=== PATIENT | female | born 1955 | race African-American/Black ===

== ENCOUNTER 2020-12-23 02:14 | Inpatient (IN) ==
[2020-12-23] MEDS: NOREPINEPHRINE 4 MG in SODIUM CHLORIDE 0.9% 242 ML IV PRN ×2 (03:00→05:24)
[2020-12-23 03:05] LABS: Basophils # 0.1 10*3/uL (0.0-0.2); Basophils % 0.2 % (0.0-0.8); Eosinophils # 0.2 10*3/uL (0.0-0.87); Eosinophils % 0.7 % (0.00-10.9); Hematocrit 24.1 VOL% (35.7-47.0); Immature Granulocytes % 5.3 %; Immature Granulocytes Absolute 1.52 #; Lymphocytes # 1.4 10*3/uL (1.4-4.0); Lymphocytes % 4.8 % (21.3-54.2); Mean Corpuscular HGB Conc 33.2 GM/DL (32-36); Mean Corpuscular Volume 82.5 FL (87-102); Mean Platelet Volume 8.4 FL (9.6-12.0); Monocytes % 2.9 % (1.7-12.7); NRBC # 0.26 10*3/uL; Neutrophils % 86.1 % (38.7-73.9); Platelet Count 157 T/CUMM (130-400); Red Blood Count 2.92 MC/CUMM (3.8-5.5); White Blood Count 28.9 T/CUMM (4-12)
[2020-12-23 03:12] LABS: ABG Base Excess -9.2 MMOL/L (-2.5-2.5); ABG Oxygen Saturation 96.9 % (95-100); ABG PH 7.338 (7.35-7.45); ABG PO2 90.3 MM HG (80-95); ABG TCO2 14.5 MMOL/L (23-27); Allen Test Positive; Pt O2 Delivery Device Room Air
[2020-12-23 03:28] LABS: Alanine Aminotransferase 11 U/L (13-56); Albumin 1.3 G/DL (3.4-5.0); Alkaline Phosphatase 74 U/L (45-117); Anisocytosis 2+; Aspartate Amino Transferase 36 U/L (0-37); Band Neutrophils 7 % (0-10); Blood Urea Nitrogen 48 MG/DL (7-18); Burr Cells Few; Calcium 7.3 MG/DL (8.5-10.1); Carbon Dioxide 17 MMOL/L (21-32); Eosinophils 1 % (0-10); Estimated Glom Filtration Rate 25 ML/MIN; Glucose 131 MG/DL (74-106); Lymphocytes 5 % (20-55); Metamyelocytes 1 %; Nucleated Red Blood Cells 3 (0-5); Osmolality,Calculated 278.5 MOS/KG (273-304); Platelet Estimate Normal; Potassium 4.2 MMOL/L (3.5-5.1); Segmented Neutrophils 82 % (50-85); Sodium 132 MMOL/L (136-145); Total Cells Counted 100; Total Protein 3.5 G/DL (6.4-8.2)
[2020-12-23 03:29] LABS: Macrocytosis 1+; Target Cells Few
[2020-12-23] MEDS ORDERED: methylPREDNISolone SOD SUC 125 MG/2 ML VIAL IV STA (05:23)
[2020-12-23] MEDS ORDERED: ALBUTEROL 2.5 MG/3 ML NEB RESP TX PRN (05:23)
[2020-12-23] MEDS ORDERED: hydrALAZINE 20 MG/1 ML VIAL IV PRN (05:23)
[2020-12-23] MEDS ORDERED: diphenhydrAMINE CAP 25 MG CAPSULE PO PRN (05:23)
[2020-12-23] MEDS ORDERED: NICOTINE 21 MG/24 HR PATCH TRANSDERM PRN (05:23)
[2020-12-23] MEDS ORDERED: ALBUTEROL/IPRATROPIUM 3 ML NEB RESP TX PRN (05:23)
[2020-12-23] MEDS ORDERED: ACETAMINOPHEN 325 MG TABLET PO PRN (05:23)
[2020-12-23] MEDS ORDERED: ONDANSETRON 4 MG/2 ML VIAL IV PRN (05:23)
[2020-12-23] MEDS ORDERED: MORPHINE 2 MG/1 ML SYRINGE IV PRN (05:23)
[2020-12-23] MEDS ORDERED: MEROPENEM 500 MG VIAL ONE (05:41)
[2020-12-23] MEDS ORDERED: NOREPINEPHRINE 4 MG/4 ML VIAL IV ONE ×5 (05:42→21:48)
[2020-12-23] MEDS: SODIUM CHLORIDE 0.9% 1,000 ML IV SCH ×4 (05:55→22:26)
[2020-12-23] MEDS: MEROPENEM 500 MG in SODIUM CHLORIDE 0.9% 100 ML IV SCH ×3 (05:55→21:43)
[2020-12-23] MEDS ORDERED: VANCOMYCIN INJ 2,500 MG in SODIUM CHLORIDE 0.9% 500 ML IV PRN (05:58)
[2020-12-23 06:28] LABS: Bacteria,Urine Few /HPF (Few); Bilirubin,Urine Negative (Negative); Blood, Urine Moderate mg/dL (Negative); Glucose,Urine (UA) Negative (Negative); Ketones,Urine Negative (Negative); Mucus,Urine Occasional /LPF (Occasional); Nitrite,Urine Negative (Negative); Protein,Urine 30 MG/DL; RBC,Urine 214 /HPF (0-4); Squamous Epithelial Cell,Urine Occasional /HPF (0-10); Urine Appearance CLOUDY (Clear); Urine Specific Gravity 1.015 (1.001-1.035)
[2020-12-23 06:30] LABS: Urine Color Yellow (Yellow)
[2020-12-23] MEDS ORDERED: VANCOMYCIN INJ 2,500 MG in SODIUM CHLORIDE 0.9% 500 ML IV ONE (06:30)
[2020-12-23] MEDS: NOREPINEPHRINE 8 MG in SODIUM CHLORIDE 0.9% 242 ML IV PRN ×4 (08:28→22:25)
[2020-12-23] MEDS: PANTOPRAZOLE 40 MG VIAL IV SCH ×2 (09:59→21:43)
[2020-12-23] MEDS: ENOXAPARIN 30 MG/0.3 ML SYRINGE SUBCUT SCH (12:55)
[2020-12-23] MEDS ORDERED: GLUCAGON 1 MG VIAL IM PRN (14:46)
[2020-12-23] MEDS ORDERED: DEXTROSE 50% 25 GM/50 ML VIAL IV PRN (14:46)
[2020-12-23] MEDS: CHLORHEXIDINE 4% SOLN 118 ML BOTTLE TOP SCH (16:37)
[2020-12-23] MEDS: INSULIN LISPRO 100 UNIT/ML SUBCUT SCH (17:51)
[2020-12-24] MEDS ORDERED: MAGNESIUM SULF RIDER 4 GM/100 ML PREMIX IV PRN (01:03)
[2020-12-24] MEDS ORDERED: MAGNESIUM SULF RIDER 2 GM/50 ML PREMIX IV PRN (01:03)
[2020-12-24] MEDS ORDERED: ALBUMIN 25% 25 GM/100 ML VIAL IV ONE ×2 (01:04→07:00)
[2020-12-24 05:32] LABS: Basophils % 0.1 % (0.0-0.8); Eosinophils # 0.3 10*3/uL (0.0-0.87); Immature Granulocytes % 4.6 %; Immature Granulocytes Absolute 1.14 #; Lymphocytes # 1.1 10*3/uL (1.4-4.0); Lymphocytes % 4.4 % (21.3-54.2); Mean Corpuscular HGB Conc 32.1 GM/DL (32-36); Mean Corpuscular Volume 85.2 FL (87-102); NRBC # 0.22 10*3/uL; Neutrophils % 85.9 % (38.7-73.9); Platelet Count 146 T/CUMM (130-400); Red Blood Count 2.23 MC/CUMM (3.8-5.5); Red Cell Distribution Width 20.4 % (9.3-17.3)
[2020-12-24] MEDS: NOREPINEPHRINE 8 MG in SODIUM CHLORIDE 0.9% 242 ML IV PRN (05:44)
[2020-12-24] MEDS: SODIUM CHLORIDE 0.9% 1,000 ML IV SCH ×2 (05:44→12:50)
[2020-12-24 06:06] LABS: Alanine Aminotransferase < 6 U/L (13-56); Albumin 1.4 G/DL (3.4-5.0); Alkaline Phosphatase 72 U/L (45-117); Aspartate Amino Transferase 19 U/L (0-37); Blood Urea Nitrogen 46 MG/DL (7-18); Calcium 7.7 MG/DL (8.5-10.1); Carbon Dioxide 16 MMOL/L (21-32); Estimated Glom Filtration Rate 31 ML/MIN; Glucose 106 MG/DL (74-106); Osmolality,Calculated 273.7 MOS/KG (273-304); Potassium 3.9 MMOL/L (3.5-5.1); Sodium 131 MMOL/L (136-145); Total Protein 3.7 G/DL (6.4-8.2)
[2020-12-24 06:11] LABS: Hemoglobin 6.1 GM/DL (12.0-16.0)
[2020-12-24] MEDS ORDERED: SODIUM CHLORIDE 0.9% 1,000 ML IV PRN (06:11)
[2020-12-24] MEDS: MEROPENEM 500 MG in SODIUM CHLORIDE 0.9% 100 ML IV SCH ×3 (06:17→22:57)
[2020-12-24 06:19] LABS: Band Neutrophils 2 % (0-10); Hypochromasia 1+; Lymphocytes 8 % (20-55); Microcytosis 1+; Nucleated Red Blood Cells 1 (0-5); Platelet Estimate Adequate; Segmented Neutrophils 88 % (50-85); Total Cells Counted 100
[2020-12-24] MEDS ORDERED: FUROSEMIDE 40 MG/4 ML VIAL IV ONE (07:53)
[2020-12-24] MEDS ORDERED: NYSTATIN CREAM 15 GM TUBE TOP SCH (09:00)
[2020-12-24] MEDS: INSULIN LISPRO 100 UNIT/ML SUBCUT SCH ×2 (09:07→18:42)
[2020-12-24] MEDS: CHLORHEXIDINE 4% SOLN 118 ML BOTTLE TOP SCH (09:33)
[2020-12-24] MEDS: PANTOPRAZOLE 40 MG VIAL IV SCH ×2 (09:33→22:20)
[2020-12-24] MEDS: ENOXAPARIN 30 MG/0.3 ML SYRINGE SUBCUT SCH (11:01)
[2020-12-24] MEDS: DESITIN 4OZ/NYSTATIN 15 GRAM MIXTURE PASTE TOP SCH ×2 (12:18→22:25)
[2020-12-24] MEDS: MIDODRINE 5 MG TABLET PO SCH ×2 (14:10→22:15)
[2020-12-24 16:14] LABS: Hematocrit 21.5 VOL% (35.7-47.0); Hemoglobin 7.1 GM/DL (12.0-16.0)
[2020-12-25 05:17] LABS: Calcium 7.5 MG/DL (8.5-10.1); Osmolality,Calculated 277.2 MOS/KG (273-304); Potassium 3.8 MMOL/L (3.5-5.1)
[2020-12-25] MEDS: MEROPENEM 500 MG in SODIUM CHLORIDE 0.9% 100 ML IV SCH (05:42)
[2020-12-25 06:13] LABS: Basophils % 0.2 % (0.0-0.8); Eosinophils # 0.3 10*3/uL (0.0-0.87); Eosinophils % 1.5 % (0.00-10.9); Hematocrit 21.9 VOL% (35.7-47.0); Hemoglobin 7.2 GM/DL (12.0-16.0); Immature Granulocytes % 3.5 %; Immature Granulocytes Absolute 0.65 #; Lymphocytes # 0.9 10*3/uL (1.4-4.0); Mean Corpuscular HGB Conc 32.9 GM/DL (32-36); Mean Corpuscular Volume 86.2 FL (87-102); Mean Platelet Volume 8.8 FL (9.6-12.0); Monocytes % 2.6 % (1.7-12.7); NRBC # 0.16 10*3/uL; Neutrophils % 87.2 % (38.7-73.9); Red Blood Count 2.54 MC/CUMM (3.8-5.5); Red Cell Distribution Width 19.7 % (9.3-17.3); White Blood Count 18.3 T/CUMM (4-12)
[2020-12-25 06:17] LABS: Platelet Count 87 T/CUMM (130-400)
[2020-12-25 06:41] LABS: Band Neutrophils 3 % (0-10); Eosinophils 1 % (0-10); Hypochromasia 1+; Lymphocytes 8 % (20-55); Microcytosis 1+; Nucleated Red Blood Cells 1 (0-5); Segmented Neutrophils 82 % (50-85); Total Cells Counted 100
[2020-12-25 06:42] LABS: Burr Cells Slight; Ovalocytes Slight; Platelet Estimate Decreased; Target Cells Slight
[2020-12-25] MEDS: INSULIN LISPRO 100 UNIT/ML SUBCUT SCH (07:55)
[2020-12-25] MEDS: MIDODRINE 5 MG TABLET PO SCH ×2 (09:12→16:37)
[2020-12-25] MEDS: DESITIN 4OZ/NYSTATIN 15 GRAM MIXTURE PASTE TOP SCH (09:13)
[2020-12-25] MEDS: PANTOPRAZOLE 40 MG VIAL IV SCH (09:13)
[2020-12-25] MEDS: CHLORHEXIDINE 4% SOLN 118 ML BOTTLE TOP SCH (09:13)
[2020-12-25 11:39] VITALS: BP 73/48
[2020-12-25] MEDS ORDERED: cefTRIAXone 2,000 MG in SODIUM CHLORIDE 0.9% 100 ML IV SCH (12:30)
[2020-12-25] MEDS: SODIUM CHLORIDE 0.9% 1,000 ML IV SCH (15:15)
[2020-12-25] MEDS ORDERED: RIVAROXABAN 15 MG TABLET PO SCH (17:00)
[2020-12-25] MEDS ORDERED: PANTOPRAZOLE 40 MG TABLET PO SCH (21:00)
[2020-12-25] MEDS ORDERED: SODIUM BICARBONATE 650 MG TABLET PO SCH (21:00)
[2020-12-25] MEDS ORDERED: APIXABAN 5 MG TABLET PO SCH (21:00)
== END 2020-12-25 16:40 | DRG 720 ==
LOC: N.ED 02:14 → N.EDINP 05:23 → SUATTDRO 05:23 → N.ICU 17:44 → N.3E 12-24 15:05
PROVIDERS: ADMIT Internal Medicine; ATTEND Hospitalist